=== PATIENT | female | born 1935 | race Caucasian/White ===

== ENCOUNTER 2019-09-26 09:04 | Inpatient (IN) ==
[2019-09-26] MEDS ORDERED: 0.9 % Sodium Chloride 1,000 ML IVC ONE ×3 (09:14→10:17)
[2019-09-26] MEDS ORDERED: Acetaminophen 650 MG RECTAL SUPP RC ONE (09:41)
[2019-09-26 09:43] LABS: Bilirubin,Urine Negative (Negative); Blood,Urine Moderate (Negative); Clarity,Urine Cloudy (Clear); Color,Urine Yellow (Yellow); Glucose,Urine (UA) Normal (Normal); Ketones,Urine Negative (Negative); Leukocyte Esterase,Urine Large (Negative); Nitrite,Urine Positive (Negative); Protein,Urine 100 mg/dL (Neg-Trace); Specific Gravity,Urine 1.014 (1.010-1.025); Urobilinogen,Urine Normal (Normal)
[2019-09-26 09:46] LABS: Bacteria,Urine Many per hpf (None-Few); Hyaline Casts,Urine None Seen per lpf (None-Few); Squamous Epithelial Cell,Urine Few per lpf (None-Few); WBC,Urine TNTC per hpf (0-3)
[2019-09-26 09:52] LABS: Hematocrit 33.2 % (35.3-44.9); Hemoglobin 10.9 g/dL (11.5-15.4); Mean Corpuscular HGB Conc 32.8 g/dL (31.6-35.5); Mean Corpuscular Hemoglobin 29.1 pg (28.0-33.3); Mean Corpuscular Volume 88.5 fL (83.0-100.0); Mean Platelet Volume 10.8 fL (9.4-12.4); Platelet Count 216 K/mcL (140-400); Red Blood Count 3.75 M/mcL (3.82-4.97); Red Cell Distribution Width 15.9 % (11.5-14.5); White Blood Count 8.2 K/mcL (4.3-11.1)
[2019-09-26 10:03] LABS: INR 1.2; Prothrombin Time 13.2 Seconds (9.4-12.1)
[2019-09-26] MEDS ORDERED: cefTRIAXone 1,000 MG in Water for inj. (sterile) 10 ML IVP ONE (10:09)
[2019-09-26 10:17] LABS: Albumin 3.2 g/dL (3.5-5.7); Albumin/Globulin Ratio 0.9 (1.1-2.2); Bilirubin,Direct 0.2 mg/dL (0.0-0.2); Bilirubin,Indirect 0.2 mg/dL (0.0-1.0); Bilirubin,Total 0.4 mg/dL (0.3-1.0); Calcium 8.5 mg/dL (8.6-10.3); Globulin 3.4 g/dL (2.4-3.5); Magnesium 1.7 mg/dL (1.6-2.6); Potassium 4.6 mEq/L (3.5-5.1); Total Protein 6.6 g/dL (6.4-8.9)
[2019-09-26 10:20] LABS: Troponin I 0.11 ng/mL (< 0.04)
[2019-09-26 10:23] LABS: Lymphocytes # 0.2 K/mcL (0.6-4.6); Monocytes # 0.2 K/mcL (0.0-1.3); Neutrophils # 7.9 K/mcL (1.6-8.9)
[2019-09-26 10:24] LABS: Anisocytosis 1+ (Not Present); Microcytosis Present (Not Present); Platelet Estimate Normal (Normal)
[2019-09-26] MEDS ORDERED: 0.9 % Sodium Chloride 500 ML ONE (10:53)
[2019-09-26] MEDS ORDERED: *HR* FentaNYL (PF) 100 MCG/2 ML VIAL IVP ONE (10:58)
[2019-09-26] MEDS ORDERED: Naloxone 0.4 MG/ML INJ IVP PRN (11:23)
[2019-09-26] MEDS ORDERED: 0.9 % Sodium Chloride 1,000 ML ONE (11:32)
[2019-09-26] MEDS ORDERED: Isovue-300 50ML VIAL IVP ONE (12:22)
[2019-09-26] MEDS ORDERED: Ondansetron 4 MG/2 ML VIAL IVP PRN (13:43)
[2019-09-26] MEDS: Ringers Solution, Lactated 1,000 ML IVC SCH ×2 (16:25→23:45)
[2019-09-26] MEDS ORDERED: Ringers Solution, Lactated 500 ML IVC ONE (17:45)
[2019-09-26] MEDS: *HR* Heparin 5,000 UNIT/ML VIAL SQ SCH (17:45)
[2019-09-26] MEDS: Latanoprost 2.5 ML BOTTLE BOTH EYES SCH (18:28)
[2019-09-26 23:05] LABS: Acinetobacter baumannii by PCR Not Detected (Not Detect); Candida albicans by PCR Not Detected (Not Detect); Candida glabrata by PCR Not Detected (Not Detect); Candida krusei by PCR Not Detected (Not Detect); Candida parapsilosis by PCR Not Detected (Not Detect); Candida tropicalis by PCR Not Detected (Not Detect); Enterobacter cloacae Cmplx PCR Not Detected (Not Detect); Enterococcus by PCR Not Detected (Not Detect); Escherichia coli by PCR DETECTED (Not Detect); Klebsiella oxytoca by PCR Not Detected (Not Detect); Klebsiella pneumoniae by PCR Not Detected (Not Detect); Proteus by PCR Not Detected (Not Detect); Pseudomonas aeruginosa by PCR Not Detected (Not Detect); Serratia marcescens by PCR Not Detected (Not Detect); Staphylococcus aureus by PCR Not Detected (Not Detect); Staphylococcus by PCR Not Detected (Not Detect); Streptococcus agalactiae(B)PCR Not Detected (Not Detect); Streptococcus by PCR Not Detected (Not Detect); Streptococcus pneumoniae PCR Not Detected (Not Detect); Streptococcus pyogenes (A) PCR Not Detected (Not Detect); blaKPC Carbapenem-Resist Gene Not Detected (Not Detect); mecA Methicillin-Resist Gene Not Detected (Not Detect); vanA/B Vancomycin-Resist Genes Not Detected (Not Detect)
[2019-09-27 02:07] LABS: Hematocrit 29.6 % (35.3-44.9); Mean Corpuscular HGB Conc 31.4 g/dL (31.6-35.5); Mean Corpuscular Hemoglobin 28.8 pg (28.0-33.3); Mean Corpuscular Volume 91.6 fL (83.0-100.0); Mean Platelet Volume 11.5 fL (9.4-12.4); Platelet Count 209 K/mcL (140-400); Red Blood Count 3.23 M/mcL (3.82-4.97); Red Cell Distribution Width 16.4 % (11.5-14.5)
[2019-09-27 02:17] LABS: Hemoglobin 9.3 g/dL (11.5-15.4); White Blood Count 17.5 K/mcL (4.3-11.1)
[2019-09-27 02:26] LABS: Potassium 4.9 mEq/L (3.5-5.1)
[2019-09-27 03:45] LABS: Platelet Estimate Normal (Normal)
[2019-09-27 03:47] LABS: Anisocytosis 1+ (Not Present); Lymphocytes # 0.4 K/mcL (0.6-4.6); Monocytes # 0.7 K/mcL (0.0-1.3); Neutrophils # 16.5 K/mcL (1.6-8.9)
[2019-09-27] MEDS ORDERED: *HR* Enoxaparin 30 MG/0.3 ML SYRINGE SQ SCH (06:00)
[2019-09-27] MEDS: *HR* Heparin 5,000 UNIT/ML VIAL SQ SCH ×2 (06:06→18:15)
[2019-09-27] MEDS ORDERED: 0.9 % Sodium Chloride 1,000 ML IVC SCH (08:00)
[2019-09-27] MEDS ORDERED: cefTRIAXone 1,000 MG in Water for inj. (sterile) 10 ML IVP SCH (09:00)
[2019-09-27] MEDS: Aspirin Enteric Coated 81 MG Tablet PO SCH (09:18)
[2019-09-27] MEDS: cefTRIAXone 2,000 MG in Water for inj. (sterile) 20 ML IVP SCH (09:18)
[2019-09-27] MEDS: Ringers Solution, Lactated 1,000 ML IVC SCH (15:25)
[2019-09-27] MEDS: 0.9 % Sodium Chloride 1,000 ML IVC SCH (16:15)
[2019-09-27] MEDS: Latanoprost 2.5 ML BOTTLE BOTH EYES SCH (18:19)
[2019-09-27] MEDS ORDERED: Ipratropium/Albuterol Neb 3 ML IH PRN (19:01)
[2019-09-28] MEDS: 0.9 % Sodium Chloride 1,000 ML IVC SCH (05:26)
[2019-09-28] MEDS: *HR* Heparin 5,000 UNIT/ML VIAL SQ SCH ×2 (05:43→18:35)
[2019-09-28 07:30] LABS: Basophils # 0.1 K/mcL (0.0-0.2); Basophils % 0.3 %; Eosinophils % 0.2 %; Hematocrit 32.2 % (35.3-44.9); Hemoglobin 9.9 g/dL (11.5-15.4); Immature Granulocytes % 0.8 % (0-4); Lymphocytes # 0.4 K/mcL (0.6-4.6); Lymphocytes % 2.4 %; Mean Corpuscular HGB Conc 30.7 g/dL (31.6-35.5); Mean Corpuscular Hemoglobin 28.8 pg (28.0-33.3); Mean Corpuscular Volume 93.6 fL (83.0-100.0); Mean Platelet Volume 11.1 fL (9.4-12.4); Monocytes # 0.8 K/mcL (0.0-1.3); Monocytes % 4.8 %; Neutrophils # 15.7 K/mcL (1.6-8.9); Platelet Count 201 K/mcL (140-400); Red Blood Count 3.44 M/mcL (3.82-4.97); Red Cell Distribution Width 16.2 % (11.5-14.5); Segmented Neutrophils % 91.5 %; White Blood Count 17.1 K/mcL (4.3-11.1)
[2019-09-28] MEDS ORDERED: *HR* Labetalol 20 MG/4 ML SYRINGE IVP PRN (08:37)
[2019-09-28] MEDS: cefTRIAXone 2,000 MG in Water for inj. (sterile) 20 ML IVP SCH (09:04)
[2019-09-28] MEDS: Aspirin Enteric Coated 81 MG Tablet PO SCH (09:05)
[2019-09-28] MEDS: NIFEdipine XL (24 HR) 60 MG TAB.ER.24 PO SCH (09:05)
[2019-09-28 09:16] LABS: Potassium 4.8 mEq/L (3.5-5.1)
[2019-09-28] MEDS: Insulin DETEMIR 100 UNIT/ML X5UNITS SQ SCH (18:35)
[2019-09-28] MEDS: Latanoprost 2.5 ML BOTTLE BOTH EYES SCH (18:42)
[2019-09-29 02:39] LABS: Basophils % 0.3 %; Eosinophils # 0.1 K/mcL (0.0-0.6); Hematocrit 30.7 % (35.3-44.9); Hemoglobin 9.5 g/dL (11.5-15.4); Immature Granulocytes % 0.9 % (0-4); Lymphocytes # 0.5 K/mcL (0.6-4.6); Lymphocytes % 3.3 %; Mean Corpuscular HGB Conc 30.9 g/dL (31.6-35.5); Mean Corpuscular Hemoglobin 28.8 pg (28.0-33.3); Mean Platelet Volume 11.3 fL (9.4-12.4); Monocytes # 0.8 K/mcL (0.0-1.3); Monocytes % 5.5 %; Neutrophils # 12.2 K/mcL (1.6-8.9); Platelet Count 216 K/mcL (140-400); Red Cell Distribution Width 16.6 % (11.5-14.5); White Blood Count 13.7 K/mcL (4.3-11.1)
[2019-09-29 03:05] LABS: Calcium 8.2 mg/dL (8.6-10.3); Potassium 4.4 mEq/L (3.5-5.1)
[2019-09-29] MEDS: *HR* Heparin 5,000 UNIT/ML VIAL SQ SCH ×2 (05:36→18:54)
[2019-09-29] MEDS: cefTRIAXone 2,000 MG in Water for inj. (sterile) 20 ML IVP SCH (08:18)
[2019-09-29] MEDS: Aspirin Enteric Coated 81 MG Tablet PO SCH (08:18)
[2019-09-29] MEDS: NIFEdipine XL (24 HR) 60 MG TAB.ER.24 PO SCH (08:18)
[2019-09-29] MEDS: 0.9 % Sodium Chloride 1,000 ML IVC SCH (12:46)
[2019-09-29] MEDS: Latanoprost 2.5 ML BOTTLE BOTH EYES SCH (18:54)
[2019-09-29] MEDS: Insulin DETEMIR 100 UNIT/ML X5UNITS SQ SCH (18:56)
[2019-09-30] MEDS: 0.9 % Sodium Chloride 1,000 ML IVC SCH (02:10)
[2019-09-30 02:37] LABS: Basophils # 0.1 K/mcL (0.0-0.2); Basophils % 0.6 %; Eosinophils # 0.2 K/mcL (0.0-0.6); Eosinophils % 1.9 %; Hematocrit 32.6 % (35.3-44.9); Hemoglobin 10.1 g/dL (11.5-15.4); Lymphocytes # 0.6 K/mcL (0.6-4.6); Lymphocytes % 5.5 %; Mean Corpuscular Hemoglobin 28.8 pg (28.0-33.3); Mean Corpuscular Volume 92.9 fL (83.0-100.0); Monocytes # 0.8 K/mcL (0.0-1.3); Monocytes % 6.9 %; Neutrophils # 9.3 K/mcL (1.6-8.9); Platelet Count 257 K/mcL (140-400); Red Blood Count 3.51 M/mcL (3.82-4.97); Red Cell Distribution Width 16.6 % (11.5-14.5); Segmented Neutrophils % 84.1 %; White Blood Count 11.1 K/mcL (4.3-11.1)
[2019-09-30 02:50] LABS: Calcium 8.2 mg/dL (8.6-10.3); Potassium 4.5 mEq/L (3.5-5.1)
[2019-09-30] MEDS: *HR* Heparin 5,000 UNIT/ML VIAL SQ SCH ×2 (06:45→17:54)
[2019-09-30] MEDS: cefTRIAXone 2,000 MG in Water for inj. (sterile) 20 ML IVP SCH (08:13)
[2019-09-30] MEDS: Aspirin Enteric Coated 81 MG Tablet PO SCH (08:13)
[2019-09-30] MEDS: NIFEdipine XL (24 HR) 60 MG TAB.ER.24 PO SCH (08:13)
[2019-09-30] MEDS: Insulin DETEMIR 100 UNIT/ML X5UNITS SQ SCH (17:55)
[2019-09-30] MEDS: Latanoprost 2.5 ML BOTTLE BOTH EYES SCH (17:56)
[2019-10-01 05:03] LABS: Basophils # 0.1 K/mcL (0.0-0.2); Basophils % 0.7 %; Eosinophils # 0.2 K/mcL (0.0-0.6); Hematocrit 32.6 % (35.3-44.9); Immature Granulocytes % 1.6 % (0-4); Lymphocytes # 0.7 K/mcL (0.6-4.6); Lymphocytes % 7.9 %; Mean Corpuscular HGB Conc 30.7 g/dL (31.6-35.5); Mean Corpuscular Hemoglobin 29.1 pg (28.0-33.3); Mean Corpuscular Volume 94.8 fL (83.0-100.0); Mean Platelet Volume 10.9 fL (9.4-12.4); Monocytes # 0.9 K/mcL (0.0-1.3); Monocytes % 9.3 %; Neutrophils # 7.2 K/mcL (1.6-8.9); Platelet Count 293 K/mcL (140-400); Red Blood Count 3.44 M/mcL (3.82-4.97); Segmented Neutrophils % 78.5 %; White Blood Count 9.1 K/mcL (4.3-11.1)
[2019-10-01] MEDS: *HR* Heparin 5,000 UNIT/ML VIAL SQ SCH (05:25)
[2019-10-01 05:26] LABS: Calcium 8.1 mg/dL (8.6-10.3); Potassium 4.7 mEq/L (3.5-5.1)
[2019-10-01] MEDS ORDERED: CefTRIAXone 2,000 MG VIAL ONE (09:15)
[2019-10-01] MEDS: cefTRIAXone 2,000 MG in Water for inj. (sterile) 20 ML IVP SCH (09:21)
[2019-10-01] MEDS: NIFEdipine XL (24 HR) 60 MG TAB.ER.24 PO SCH (09:21)
[2019-10-01] MEDS: Aspirin Enteric Coated 81 MG Tablet PO SCH (09:21)
[2019-10-01] MEDS: Latanoprost 2.5 ML BOTTLE BOTH EYES SCH (17:13)
[2019-10-01] MEDS: Insulin DETEMIR 100 UNIT/ML X5UNITS SQ SCH (17:13)
[2019-10-02 06:27] LABS: Hematocrit 33.7 % (35.3-44.9); Hemoglobin 10.5 g/dL (11.5-15.4); Mean Corpuscular HGB Conc 31.2 g/dL (31.6-35.5); Mean Corpuscular Hemoglobin 29.1 pg (28.0-33.3); Mean Corpuscular Volume 93.4 fL (83.0-100.0); Mean Platelet Volume 10.4 fL (9.4-12.4); Platelet Count 327 K/mcL (140-400); Red Blood Count 3.61 M/mcL (3.82-4.97); Red Cell Distribution Width 17.1 % (11.5-14.5); White Blood Count 9.5 K/mcL (4.3-11.1)
[2019-10-02 06:41] LABS: Calcium 8.1 mg/dL (8.6-10.3); Potassium 4.9 mEq/L (3.5-5.1)
[2019-10-02] MEDS: NIFEdipine XL (24 HR) 60 MG TAB.ER.24 PO SCH (08:20)
[2019-10-02] MEDS: cefTRIAXone 2,000 MG in Water for inj. (sterile) 20 ML IVP SCH (08:20)
[2019-10-02] MEDS: Aspirin Enteric Coated 81 MG Tablet PO SCH (08:20)
[2019-10-02] MEDS: Latanoprost 2.5 ML BOTTLE BOTH EYES SCH (17:52)
[2019-10-02] MEDS: Insulin DETEMIR 100 UNIT/ML X5UNITS SQ SCH (17:52)
[2019-10-02] MEDS: *HR* Labetalol 20 MG/4 ML SYRINGE IVP PRN (20:45)
[2019-10-03 04:06] LABS: Hematocrit 32.1 % (35.3-44.9); Hemoglobin 9.7 g/dL (11.5-15.4); Mean Corpuscular HGB Conc 30.2 g/dL (31.6-35.5); Mean Corpuscular Hemoglobin 28.8 pg (28.0-33.3); Mean Corpuscular Volume 95.3 fL (83.0-100.0); Platelet Count 337 K/mcL (140-400); Red Blood Count 3.37 M/mcL (3.82-4.97); Red Cell Distribution Width 16.9 % (11.5-14.5); White Blood Count 9.5 K/mcL (4.3-11.1)
[2019-10-03 04:22] LABS: Calcium 8.1 mg/dL (8.6-10.3)
[2019-10-03] MEDS ORDERED: D5% in Water 1,000 ML IVC PRN ×2 (08:32→18:57)
[2019-10-03] MEDS ORDERED: *HR* Dextrose 50 % in Water (Syg) 50 ML SYRINGE IVP PRN ×2 (08:32→18:57)
[2019-10-03] MEDS ORDERED: Dextrose Gel 15 GM/37.5 ML TUBE PO PRN ×4 (08:32→18:57)
[2019-10-03] MEDS: cefTRIAXone 2,000 MG in Water for inj. (sterile) 20 ML IVP SCH (09:00)
[2019-10-03] MEDS: Aspirin Enteric Coated 81 MG Tablet PO SCH (09:00)
[2019-10-03] MEDS: NIFEdipine XL (24 HR) 60 MG TAB.ER.24 PO SCH (09:00)
[2019-10-03] MEDS: *HR* Labetalol 20 MG/4 ML SYRINGE IVP PRN (09:00)
[2019-10-03] MEDS ORDERED: *HR* FentaNYL (PF) 100 MCG/2 ML VIAL ONE (16:58)
[2019-10-03] MEDS ORDERED: *HR* Propofol 200 MG/20 ML VIAL IVP ONE (16:59)
[2019-10-03] MEDS ORDERED: Lidocaine -MPF 2% 2 ML VIAL ONE (17:00)
[2019-10-03] MEDS ORDERED: Ondansetron 4 MG/2 ML VIAL ONE (17:01)
[2019-10-03] MEDS ORDERED: *HR* Succinylcholine 200 MG/10 ML VIAL IVP ONE (17:01)
[2019-10-03] MEDS ORDERED: *HR* Promethazine 25 MG/ML VIAL IVP PRN ×2 (17:13→18:57)
[2019-10-03] MEDS ORDERED: Ondansetron 4 MG/2 ML VIAL IVP ONE (17:13)
[2019-10-03] MEDS ORDERED: *HR* OxyCODONE Immed Rel 5 MG TABLET PO PRN (17:13)
[2019-10-03] MEDS ORDERED: *HR* HYDROmorphone (PF) 1 MG/ML SYRINGE IVP PRN (17:13)
[2019-10-03] MEDS ORDERED: Ipratropium/Albuterol Neb 3 ML IH PRN (18:57)
[2019-10-03] MEDS ORDERED: Ondansetron 4 MG/2 ML VIAL IVP PRN (18:57)
[2019-10-03] MEDS ORDERED: Naloxone 0.4 MG/ML INJ IVP PRN (18:57)
[2019-10-03] MEDS ORDERED: *HR* Labetalol 20 MG/4 ML SYRINGE IVP PRN (18:57)
[2019-10-04 01:54] LABS: Hematocrit 32.2 % (35.3-44.9); Hemoglobin 9.9 g/dL (11.5-15.4); Mean Corpuscular HGB Conc 30.7 g/dL (31.6-35.5); Mean Corpuscular Hemoglobin 28.7 pg (28.0-33.3); Mean Corpuscular Volume 93.3 fL (83.0-100.0); Mean Platelet Volume 10.4 fL (9.4-12.4); Platelet Count 372 K/mcL (140-400); Red Blood Count 3.45 M/mcL (3.82-4.97); Red Cell Distribution Width 16.9 % (11.5-14.5); White Blood Count 9.9 K/mcL (4.3-11.1)
[2019-10-04 02:22] LABS: Calcium 8.1 mg/dL (8.6-10.3); Potassium 5.3 mEq/L (3.5-5.1)
[2019-10-04] MEDS: Aspirin Enteric Coated 81 MG Tablet PO SCH (08:10)
[2019-10-04] MEDS: NIFEdipine XL (24 HR) 60 MG TAB.ER.24 PO SCH (08:11)
[2019-10-04] MEDS ORDERED: cefTRIAXone 2,000 MG in Water for inj. (sterile) 20 ML IVP SCH (09:00)
[2019-10-04] MEDS ORDERED: D5% in Water 1,000 ML IVC PRN (11:55)
[2019-10-04] MEDS ORDERED: Dextrose Gel 15 GM/37.5 ML TUBE PO PRN ×2 (11:55)
[2019-10-04] MEDS ORDERED: *HR* Dextrose 50 % in Water (Syg) 50 ML SYRINGE IVP PRN (11:55)
[2019-10-04] MEDS: Insulin LISPRO 300 UNITS/3 ML VIAL SQ SCH ×2 (12:39→16:39)
[2019-10-04] MEDS ORDERED: Insulin DETEMIR 100 UNIT/ML X5UNITS SQ SCH (18:00)
[2019-10-04] MEDS ORDERED: Latanoprost 2.5 ML BOTTLE BOTH EYES SCH (18:00)
[2019-10-04] MEDS ORDERED: Insulin LISPRO 300 UNITS/3 ML VIAL SQ SCH (21:00)
[2019-10-05 04:08] LABS: Calcium 8.2 mg/dL (8.6-10.3); Potassium 4.6 mEq/L (3.5-5.1)
[2019-10-05 04:15] LABS: Hematocrit 31.3 % (35.3-44.9); Hemoglobin 9.6 g/dL (11.5-15.4); Mean Corpuscular HGB Conc 30.7 g/dL (31.6-35.5); Mean Corpuscular Volume 94.6 fL (83.0-100.0); Mean Platelet Volume 10.4 fL (9.4-12.4); Platelet Count 356 K/mcL (140-400); Red Blood Count 3.31 M/mcL (3.82-4.97); Red Cell Distribution Width 16.7 % (11.5-14.5); White Blood Count 10.3 K/mcL (4.3-11.1)
[2019-10-05] MEDS ORDERED: 0.9 % Sodium Chloride 500 ML IVC ONE (07:04)
[2019-10-05 07:13] VITALS: BP 172/77
[2019-10-05] MEDS: Insulin LISPRO 300 UNITS/3 ML VIAL SQ SCH ×2 (08:14→11:34)
[2019-10-05] MEDS: Aspirin Enteric Coated 81 MG Tablet PO SCH (08:40)
[2019-10-05] MEDS: NIFEdipine XL (24 HR) 60 MG TAB.ER.24 PO SCH (08:40)
[2019-10-05] MEDS ORDERED: cephALEXin 250 MG CAPSULE PO SCH (09:00)
[2019-10-05] MEDS ORDERED: Furosemide 20 MG/2 ML VIAL IVP ONE (09:35)
[2019-10-05] MEDS ORDERED: carvediloL 6.25 MG TABLET PO SCH (10:41)
[2019-10-05 12:03] LABS: Potassium 4.9 mEq/L (3.5-5.1)
[2019-10-06] MEDS ORDERED: Furosemide 40 MG TABLET PO SCH (09:00)
[2019-10-07 18:30] LABS: Calculi Mass 36 mg
== END 2019-10-05 16:10 | DRG 853 ==
LOC: EMEROOARM 09:04 → SUATTDRO 12:37 → 2NENU 12:37
PROVIDERS: ADMIT Internal Medicine; ATTEND Family Medicine

== ENCOUNTER 2020-11-29 09:26 | Inpatient (IN) ==
[2020-11-29 09:53] LABS: Basophils # 0.1 K/mcL (0.0-0.2); Basophils % 0.7 %; Eosinophils # 0.1 K/mcL (0.0-0.6); Eosinophils % 0.7 %; Hematocrit 36.2 % (35.3-44.9); Hemoglobin 10.5 g/dL (11.5-15.4); Immature Granulocytes % 0.8 % (0-4); Lymphocytes # 0.8 K/mcL (0.6-4.6); Lymphocytes % 8.4 %; Mean Corpuscular Hemoglobin 29.2 pg (28.0-33.3); Mean Corpuscular Volume 100.8 fL (83.0-100.0); Mean Platelet Volume 10.5 fL (9.4-12.4); Monocytes # 0.5 K/mcL (0.0-1.3); Monocytes % 4.7 %; Neutrophils # 8.2 K/mcL (1.6-8.9); Platelet Count 244 K/mcL (140-400); Red Blood Count 3.59 M/mcL (3.82-4.97); Red Cell Distribution Width 16.5 % (11.5-14.5); Segmented Neutrophils % 84.7 %; White Blood Count 9.7 K/mcL (4.3-11.1)
[2020-11-29 10:03] LABS: Activated Partial Thrombo Time 30.7 Seconds (26.0-36.0)
[2020-11-29 10:13] LABS: Alanine Aminotransferase 7 Units/L (7-52); Albumin 3.7 g/dL (3.5-5.7); Albumin/Globulin Ratio 1.2 (1.1-2.2); Alkaline Phosphatase 81 Units/L (34-104); Aspartate Amino Transferase 7 Units/L (13-39); BUN/Creatinine Ratio 21 (6-26); Bilirubin,Direct 0.1 mg/dL (0.0-0.2); Bilirubin,Indirect 0.2 mg/dL (0.0-1.0); Bilirubin,Total 0.3 mg/dL (0.3-1.0); Blood Urea Nitrogen 37 mg/dL (8-23); Calcium 8.4 mg/dL (8.6-10.3); Carbon Dioxide 32 mEq/L (23-29); Chloride 105 mEq/L (98-107); Ethanol < 10 mg/dL (Less than 10); Glucose 175 mg/dL (70-105); Osmolality,Calculated 307 (280-300); Potassium 4.8 mEq/L (3.5-5.1); Sodium 142 mEq/L (136-145); Total Protein 6.7 g/dL (6.4-8.9); Troponin I < 0.03 ng/mL (< 0.04); eGFR For African Americans 33 (> 60); eGFR For Non-African Americans 27 (> 60)
[2020-11-29 10:41] LABS: Amorphous Sediment,Urine Few per hpf (None-Few); Bacteria,Urine Few per hpf (None-Few); Bilirubin,Urine Negative (Negative); Blood,Urine Small (Negative); Clarity,Urine Turbid (Clear); Color,Urine Yellow (Yellow); Glucose,Urine (UA) Normal (Normal); Ketones,Urine Negative (Negative); Leukocyte Esterase,Urine Large (Negative); Mucus,Urine Few per lpf (None-Few); Nitrite,Urine Positive (Negative); Protein,Urine 70 mg/dL (Neg-Trace); Specific Gravity,Urine 1.016 (1.010-1.025); Squamous Epithelial Cell,Urine Moderate per hpf (None-Few); Urobilinogen,Urine Normal (Normal); WBC,Urine TNTC per hpf (0-3)
[2020-11-29 11:11] LABS: Amphetamine Screen,Urine Negative ng/mL (Cutoff=1000); Barbiturate Screen,Urine Negative ng/mL (Cutoff=200); Benzodiazepines Screen,Urine Negative ng/mL (Cutoff=200); Cannabinoid Screen,Urine Negative ng/mL (Cutoff = 50); Cocaine Screen,Urine Negative ng/mL (Cutoff= 300); Opiate Screen,Urine Positive ng/mL (Cutoff=300); Phencyclidine Screen,Urine Negative ng/mL (Cutoff=25)
[2020-11-29 11:13] LABS: ABG Base Excess 4 mEq/L (-2 to 3); ABG HCO3 34 mEq/L (21-27); ABG Oxygen Saturation 92 % (95-98); ABG PCO2 81 mmHg (35-45); ABG PH 7.23 pH Units (7.32-7.45); ABG PO2 80 mmHg (85-104); ABG TCO2 36 mEq/L (20-26)
[2020-11-29 12:27] LABS: Adenovirus Not Detected (Not Detect); Bordetella Pertussis Not Detected (Not Detect); Chlamydophila pneumoniae Not Detected (Not Detect); Coronavirus 229E Not Detected (Not Detect); Coronavirus HKU1 Not Detected (Not Detect); Coronavirus NL63 Not Detected (Not Detect); Coronavirus OC43 Not Detected (Not Detect); Human Metapneumovirus Not Detected (Not Detect); Human Rhinovirus/Enterovirus Not Detected (Not Detect); Influenza A Subtype 2009 H1 Not Detected (Not Detect); Influenza B Not Detected (Not Detect); Mycoplasma pneumoniae Not Detected (Not Detect); Parainfluenza Virus 1 Not Detected (Not Detect); Parainfluenza Virus 2 Not Detected (Not Detect); Parainfluenza Virus 3 Not Detected (Not Detect); Parainfluenza Virus 4 Not Detected (Not Detect); Respiratory Syncytial Virus Not Detected (Not Detect); SARS-CoV-2 Not Detected (Not Detect)
[2020-11-29] MEDS ORDERED: ceFAZolin 1,000 MG in Water for inj. (sterile) 10 ML IVP ONE (12:37)
[2020-11-29] MEDS ORDERED: Ondansetron 4 MG/2 ML VIAL IVP PRN (12:49)
[2020-11-29] MEDS ORDERED: Naloxone 0.4 MG/ML INJ IVP PRN (12:49)
[2020-11-29] MEDS ORDERED: cefTRIAXone 1,000 MG in Water for inj. (sterile) 10 ML IVP SCH (13:00)
[2020-11-29] MEDS ORDERED: Perflutren Lipid Microsphere 1.3 ML in 0.9 % Sodium Chloride 8.7 ML IVP PRN (13:19)
[2020-11-29] MEDS ORDERED: Dextrose Gel 15 GM/37.5 ML TUBE PO PRN ×2 (13:32)
[2020-11-29] MEDS ORDERED: D5% in Water 1,000 ML IVC PRN (13:32)
[2020-11-29] MEDS ORDERED: *HR* Dextrose 50 % in Water (Vial) 50 ML VIAL IVP PRN (13:32)
[2020-11-29 14:06] LABS: ABG Base Excess 4 mEq/L (-2 to 3); ABG HCO3 32 mEq/L (21-27); ABG Oxygen Saturation 96 % (95-98); ABG PCO2 62 mmHg (35-45); ABG PH 7.32 pH Units (7.32-7.45); ABG PO2 93 mmHg (85-104); ABG TCO2 34 mEq/L (20-26); Blood Gas Modality NIV
[2020-11-29 14:42] LABS: Magnesium 2.4 mg/dL (1.6-2.6)
[2020-11-29 15:23] LABS: Estimated Average Glucose 154 mg/dl
[2020-11-29 15:43] LABS: Lipase 11 Units/L (11-82); Troponin I < 0.03 ng/mL (< 0.04)
[2020-11-29 15:55] LABS: Thyroid Stimulating Hormone 4.402 mcIU/mL (0.340-5.600)
[2020-11-29] MEDS: Ipratropium/Albuterol Neb 3 ML IH SCH ×2 (15:58→21:47)
[2020-11-29] MEDS: Furosemide 40 MG/4 ML VIAL IVP SCH (16:11)
[2020-11-29] MEDS: *HR* Heparin 5,000 UNIT/ML VIAL SQ SCH ×2 (16:11→20:56)
[2020-11-29] MEDS: Insulin LISPRO 300 UNITS/3 ML VIAL SUBQ SCH ×2 (17:37→23:50)
[2020-11-29] MEDS: Latanoprost 2.5 ML BOTTLE BOTH EYES SCH (18:06)
[2020-11-29 20:49] LABS: ABG Base Excess 9 mEq/L (-2 to 3); ABG HCO3 36 mEq/L (21-27); ABG Oxygen Saturation 93 % (95-98); ABG PCO2 64 mmHg (35-45); ABG PH 7.36 pH Units (7.32-7.45); ABG PO2 71 mmHg (85-104); ABG TCO2 38 mEq/L (20-26); Blood Gas Modality BiLevel; Blood Gas VT 533 cc
[2020-11-29] MEDS: cefTRIAXone 1,000 MG in Water for inj. (sterile) 10 ML IVP SCH (20:55)
[2020-11-30 01:48] LABS: Immature Granulocytes % 0.6 % (0-4); Segmented Neutrophils % 84.9 %
[2020-11-30 01:49] LABS: Basophils # 0.1 K/mcL (0.0-0.2); Basophils % 0.6 %; Eosinophils # 0.1 K/mcL (0.0-0.6); Hematocrit 36.4 % (35.3-44.9); Hemoglobin 10.9 g/dL (11.5-15.4); Lymphocytes # 0.7 K/mcL (0.6-4.6); Lymphocytes % 6.7 %; Mean Corpuscular HGB Conc 29.9 g/dL (31.6-35.5); Mean Corpuscular Hemoglobin 29.9 pg (28.0-33.3); Mean Corpuscular Volume 99.7 fL (83.0-100.0); Mean Platelet Volume 10.3 fL (9.4-12.4); Monocytes # 0.6 K/mcL (0.0-1.3); Monocytes % 6.2 %; Platelet Count 244 K/mcL (140-400); Red Blood Count 3.65 M/mcL (3.82-4.97); Red Cell Distribution Width 16.2 % (11.5-14.5); White Blood Count 10.2 K/mcL (4.3-11.1)
[2020-11-30 01:51] LABS: Neutrophils # 8.7 K/mcL (1.6-8.9)
[2020-11-30 02:05] LABS: Calcium 8.8 mg/dL (8.6-10.3); Potassium 4.3 mEq/L (3.5-5.1)
[2020-11-30] MEDS: Ipratropium/Albuterol Neb 3 ML IH SCH ×4 (03:05→22:04)
[2020-11-30 04:22] LABS: ABG Base Excess 10 mEq/L (-2 to 3); ABG HCO3 37 mEq/L (21-27); ABG Oxygen Saturation 93 % (95-98); ABG PCO2 62 mmHg (35-45); ABG PH 7.38 pH Units (7.32-7.45); ABG PO2 72 mmHg (85-104); ABG TCO2 39 mEq/L (20-26); Blood Gas Modality BiLevel; Blood Gas VT 376 cc
[2020-11-30] MEDS: *HR* Heparin 5,000 UNIT/ML VIAL SQ SCH ×3 (06:00→20:03)
[2020-11-30] MEDS: Insulin LISPRO 300 UNITS/3 ML VIAL SUBQ SCH ×3 (08:14→17:40)
[2020-11-30] MEDS: Aspirin Enteric Coated 81 MG Tablet PO SCH (10:47)
[2020-11-30] MEDS: Furosemide 40 MG/4 ML VIAL IVP SCH ×2 (10:47→17:37)
[2020-11-30] MEDS ORDERED: *HR* HYDROcodone/Acet 5/325 mg TABLET PO PRN (11:05)
[2020-11-30] MEDS: Latanoprost 2.5 ML BOTTLE BOTH EYES SCH (17:38)
[2020-11-30] MEDS ORDERED: *HR* Labetalol 20 MG/4 ML SYRINGE IVP ONE (18:37)
[2020-11-30] MEDS: cefTRIAXone 1,000 MG in Water for inj. (sterile) 10 ML IVP SCH (20:02)
[2020-12-01 02:52] LABS: Basophils # 0.1 K/mcL (0.0-0.2); Eosinophils # 0.1 K/mcL (0.0-0.6); Eosinophils % 2.1 %; Hematocrit 34.9 % (35.3-44.9); Hemoglobin 10.2 g/dL (11.5-15.4); Immature Granulocytes % 0.3 % (0-4); Lymphocytes # 0.8 K/mcL (0.6-4.6); Lymphocytes % 13.4 %; Mean Corpuscular HGB Conc 29.2 g/dL (31.6-35.5); Mean Corpuscular Hemoglobin 29.2 pg (28.0-33.3); Mean Platelet Volume 10.7 fL (9.4-12.4); Monocytes # 0.6 K/mcL (0.0-1.3); Monocytes % 9.4 %; Neutrophils # 4.6 K/mcL (1.6-8.9); Platelet Count 214 K/mcL (140-400); Red Blood Count 3.49 M/mcL (3.82-4.97); Red Cell Distribution Width 15.9 % (11.5-14.5); Segmented Neutrophils % 73.8 %; White Blood Count 6.3 K/mcL (4.3-11.1)
[2020-12-01 03:16] LABS: Calcium 8.6 mg/dL (8.6-10.3); Magnesium 1.9 mg/dL (1.6-2.6); Phosphorous 3.5 mg/dL (2.7-4.5); Potassium 3.4 mEq/L (3.5-5.1)
[2020-12-01] MEDS: *HR* Heparin 5,000 UNIT/ML VIAL SQ SCH ×3 (03:24→20:21)
[2020-12-01] MEDS: Ipratropium/Albuterol Neb 3 ML IH SCH ×4 (03:37→22:55)
[2020-12-01] MEDS: Insulin LISPRO 300 UNITS/3 ML VIAL SUBQ SCH ×3 (07:33→16:14)
[2020-12-01] MEDS: Furosemide 40 MG/4 ML VIAL IVP SCH ×2 (08:58→18:04)
[2020-12-01] MEDS: NIFEdipine XL (24 HR) 30 MG TAB.ER.24 PO SCH (08:58)
[2020-12-01] MEDS: Aspirin Enteric Coated 81 MG Tablet PO SCH (08:58)
[2020-12-01] MEDS: lisinopriL 20 MG TABLET PO SCH ×2 (10:59→20:21)
[2020-12-01] MEDS: amLODIPine 5 MG TABLET PO SCH (10:59)
[2020-12-01] MEDS: Latanoprost 2.5 ML BOTTLE BOTH EYES SCH (18:05)
[2020-12-01] MEDS: cefTRIAXone 1,000 MG in Water for inj. (sterile) 10 ML IVP SCH (20:20)
[2020-12-02] MEDS: Insulin LISPRO 300 UNITS/3 ML VIAL SUBQ SCH ×5 (00:18→23:53)
[2020-12-02 02:59] LABS: Basophils # 0.1 K/mcL (0.0-0.2); Basophils % 0.7 %; Eosinophils # 0.2 K/mcL (0.0-0.6); Eosinophils % 2.3 %; Hematocrit 35.1 % (35.3-44.9); Hemoglobin 10.3 g/dL (11.5-15.4); Immature Granulocytes % 0.3 % (0-4); Lymphocytes # 0.8 K/mcL (0.6-4.6); Mean Corpuscular HGB Conc 29.3 g/dL (31.6-35.5); Mean Corpuscular Volume 98.9 fL (83.0-100.0); Mean Platelet Volume 10.3 fL (9.4-12.4); Monocytes # 0.6 K/mcL (0.0-1.3); Monocytes % 9.1 %; Neutrophils # 5.3 K/mcL (1.6-8.9); Platelet Count 210 K/mcL (140-400); Red Blood Count 3.55 M/mcL (3.82-4.97); Red Cell Distribution Width 15.9 % (11.5-14.5); Segmented Neutrophils % 75.6 %
[2020-12-02 03:14] LABS: Calcium 8.8 mg/dL (8.6-10.3); Potassium 3.5 mEq/L (3.5-5.1)
[2020-12-02] MEDS: Ipratropium/Albuterol Neb 3 ML IH SCH ×4 (03:17→21:28)
[2020-12-02] MEDS: *HR* Heparin 5,000 UNIT/ML VIAL SQ SCH ×3 (05:14→20:45)
[2020-12-02] MEDS: amLODIPine 5 MG TABLET PO SCH (09:38)
[2020-12-02] MEDS: Aspirin Enteric Coated 81 MG Tablet PO SCH (09:38)
[2020-12-02] MEDS: Furosemide 40 MG/4 ML VIAL IVP SCH ×2 (09:38→16:42)
[2020-12-02] MEDS: NIFEdipine XL (24 HR) 30 MG TAB.ER.24 PO SCH (09:38)
[2020-12-02] MEDS: lisinopriL 20 MG TABLET PO SCH ×2 (09:38→20:45)
[2020-12-02] MEDS: Latanoprost 2.5 ML BOTTLE BOTH EYES SCH (16:44)
[2020-12-02] MEDS: cefTRIAXone 1,000 MG in Water for inj. (sterile) 10 ML IVP SCH (20:44)
[2020-12-02] MEDS: QUEtiapine Fumarate 25 MG TABLET PO SCH (20:45)
[2020-12-03 03:15] LABS: Basophils % 0.7 %; Eosinophils # 0.2 K/mcL (0.0-0.6); Eosinophils % 2.5 %; Hematocrit 33.9 % (35.3-44.9); Hemoglobin 9.9 g/dL (11.5-15.4); Immature Granulocytes % 0.3 % (0-4); Lymphocytes # 1.1 K/mcL (0.6-4.6); Lymphocytes % 17.5 %; Mean Corpuscular HGB Conc 29.2 g/dL (31.6-35.5); Mean Corpuscular Hemoglobin 29.1 pg (28.0-33.3); Mean Corpuscular Volume 99.7 fL (83.0-100.0); Mean Platelet Volume 10.5 fL (9.4-12.4); Monocytes # 0.6 K/mcL (0.0-1.3); Monocytes % 10.6 %; Neutrophils # 4.1 K/mcL (1.6-8.9); Platelet Count 205 K/mcL (140-400); Red Cell Distribution Width 15.9 % (11.5-14.5); Segmented Neutrophils % 68.4 %
[2020-12-03 03:39] LABS: Calcium 8.6 mg/dL (8.6-10.3); Potassium 3.3 mEq/L (3.5-5.1)
[2020-12-03] MEDS: Ipratropium/Albuterol Neb 3 ML IH SCH ×4 (03:44→22:24)
[2020-12-03] MEDS: *HR* Heparin 5,000 UNIT/ML VIAL SQ SCH ×3 (06:16→21:25)
[2020-12-03] MEDS: Furosemide 40 MG/4 ML VIAL IVP SCH ×2 (07:18→18:15)
[2020-12-03] MEDS: lisinopriL 20 MG TABLET PO SCH ×2 (07:19→21:24)
[2020-12-03] MEDS: Aspirin Enteric Coated 81 MG Tablet PO SCH (07:19)
[2020-12-03] MEDS: NIFEdipine XL (24 HR) 30 MG TAB.ER.24 PO SCH (07:19)
[2020-12-03] MEDS: amLODIPine 5 MG TABLET PO SCH (07:19)
[2020-12-03] MEDS: Insulin LISPRO 300 UNITS/3 ML VIAL SUBQ SCH ×4 (07:20→23:51)
[2020-12-03] MEDS: Latanoprost 2.5 ML BOTTLE BOTH EYES SCH (18:19)
[2020-12-03] MEDS: cefTRIAXone 1,000 MG in Water for inj. (sterile) 10 ML IVP SCH (21:24)
[2020-12-03] MEDS: QUEtiapine Fumarate 25 MG TABLET PO SCH (21:24)
[2020-12-04 01:14] LABS: Hematocrit 34.9 % (35.3-44.9); Hemoglobin 10.2 g/dL (11.5-15.4); Mean Corpuscular HGB Conc 29.2 g/dL (31.6-35.5); Mean Corpuscular Hemoglobin 28.8 pg (28.0-33.3); Mean Corpuscular Volume 98.6 fL (83.0-100.0); Mean Platelet Volume 10.4 fL (9.4-12.4); Platelet Count 195 K/mcL (140-400); Red Blood Count 3.54 M/mcL (3.82-4.97); Red Cell Distribution Width 15.8 % (11.5-14.5); White Blood Count 6.4 K/mcL (4.3-11.1)
[2020-12-04 01:25] LABS: VBG HCO3 35 mEq/L (21-27); VBG PCO2 42 mmHg (41-51); VBG PH 7.53 pH Units (7.32-7.42); VBG PO2 79 mmHg (25-50)
[2020-12-04 01:33] LABS: Calcium 8.6 mg/dL (8.6-10.3); Potassium 3.8 mEq/L (3.5-5.1)
[2020-12-04] MEDS: Ipratropium/Albuterol Neb 3 ML IH SCH ×2 (03:57→10:52)
[2020-12-04] MEDS: Insulin LISPRO 300 UNITS/3 ML VIAL SUBQ SCH ×2 (05:33→11:26)
[2020-12-04] MEDS: *HR* Heparin 5,000 UNIT/ML VIAL SQ SCH ×2 (05:34→11:04)
[2020-12-04 07:16] VITALS: BP 152/73
[2020-12-04] MEDS: lisinopriL 20 MG TABLET PO SCH (08:25)
[2020-12-04] MEDS: Furosemide 40 MG/4 ML VIAL IVP SCH (08:25)
[2020-12-04] MEDS: amLODIPine 5 MG TABLET PO SCH (08:25)
[2020-12-04] MEDS: Aspirin Enteric Coated 81 MG Tablet PO SCH (08:25)
[2020-12-04] MEDS: NIFEdipine XL (24 HR) 30 MG TAB.ER.24 PO SCH (08:25)
[2020-12-04 12:55] LABS: Adenovirus Not Detected (Not Detect); Bordetella Pertussis Not Detected (Not Detect); Chlamydophila pneumoniae Not Detected (Not Detect); Coronavirus 229E Not Detected (Not Detect); Coronavirus HKU1 Not Detected (Not Detect); Coronavirus NL63 Not Detected (Not Detect); Coronavirus OC43 Not Detected (Not Detect); Human Metapneumovirus Not Detected (Not Detect); Human Rhinovirus/Enterovirus Not Detected (Not Detect); Influenza A Subtype 2009 H1 Not Detected (Not Detect); Influenza B Not Detected (Not Detect); Mycoplasma pneumoniae Not Detected (Not Detect); Parainfluenza Virus 1 Not Detected (Not Detect); Parainfluenza Virus 2 Not Detected (Not Detect); Parainfluenza Virus 3 Not Detected (Not Detect); Parainfluenza Virus 4 Not Detected (Not Detect); Respiratory Syncytial Virus Not Detected (Not Detect); SARS-CoV-2 Not Detected (Not Detect)
== END 2020-12-04 15:45 | DRG 291 ==
LOC: EMEROOARM 09:26 → 2ANU 09:26 → SUATTDRO 12:50 → 2NNU 13:27 → SUATTDRO 11-30 12:30 → 2ANU 12-01 13:18
PROVIDERS: ADMIT General Practice; ATTEND Internal Medicine